=== PATIENT | male | born 1985 | race Caucasian/White ===

== ENCOUNTER 2018-11-15 07:48 | Emergency (ER) | payer OTHER ==
[2018-11-15 07:57] VITALS: BMI 28.3
[2018-11-15] MEDS ORDERED: UNKNOWN ANXIETY MED (07:59)
[2018-11-15] MEDS ORDERED: TORADOL10 MG PO (08:14)
[2018-11-15] MEDS ORDERED: CLEOCIN HCL300 MG PO (08:14)
[2018-11-15 08:34] VITALS: BP 148/86
== END 2018-11-15 08:37 | disposition home or self-care (01) ==
LOC: D.ER 07:48
DX: K04.7 Periapical abscess without sinus (principal)